=== PATIENT | female | born 1995 | race Two or more races ===

== ENCOUNTER 2024-10-24 22:11 | Emergency (ER) | payer SELFPAY ==
[~2024-10-24] VITALS: Ht 165.1 cm; Wt 63.0 kg
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
[2024-10-24] MEDS ORDERED: ACETAMINOPHEN 325 MG TAB PO ONE (23:00)
[2024-10-24] MEDS: ACETAMINOPHEN 500 MG TAB or CAP PO ONE (23:58)
[2024-10-24 23:59] VITALS: BP 133/74; PULSE 93; RESP 17; TEMP 98; O2SAT 98
== END 2024-10-25 00:01 | disposition home or self-care (01) ==
LOC: ER 22:11 → EDBD 22:11 → ER 10-25 00:01
DX: M54.59 Other low back pain (principal); Z59.00 Homelessness unspecified